=== PATIENT | male | born 1985 ===

== ENCOUNTER 2021-10-10 16:29 | Emergency (ER) | payer SELFPAY ==
[2021-10-10] MEDS ORDERED: Sodium Chloride 0.9% 1,000 ML IV ONE ×2 (16:31→17:22)
[2021-10-10] MEDS ORDERED: Activated Charcoal/Water Susp 50 GM/240 ML Tube PO ONE (16:31)
[2021-10-10] MEDS ORDERED: Naloxone 2 MG/2 ML Syringe IVPUSH ONE (16:31)
[2021-10-10] MEDS ORDERED: Sodium Chloride 0.9% 10 ML Syringe FLUSH PRN (16:34)
[2021-10-10 17:10] LABS: AMPHETAMINES,URINE POSITIVE (NEGATIVE); BARBITURATES,URINE NEGATIVE (NEGATIVE); BENZODIAZEPINE,URINE NEGATIVE (NEGATIVE); MDMA (ECSTASY), URINE NEGATIVE (NEGATIVE); METHADONE,URINE NEGATIVE (NEGATIVE); METHAMPHETAMINES,URINE POSITIVE (NEGATIVE); OPIATES,URINE NEGATIVE (NEGATIVE); OXYCODONE,URINE NEGATIVE (NEGATIVE); PHENCYCLIDINE,URINE NEGATIVE (NEGATIVE); TCA,URINE NEGATIVE (NEGATIVE)
[2021-10-10 17:13] LABS: PTT,PARTIAL THROMBOPLSTIN TIME 24.5 SEC (22.0-34.0)
[2021-10-10] MEDS ORDERED: Ondansetron 4 MG/2 ML SDV IV ONE (17:14)
[2021-10-10 17:21] LABS: ANION GAP 12.6 mEq/L (7-13); CHLORIDE,CL 104 mmol/L (98-107); SODIUM,NA 142 mmol/L (136-145)
[2021-10-10 17:23] LABS: ACETAMINOPHEN 0 ug/mL (10-30 (Therapeutic))
== END 2021-10-10 18:01 ==
LOC: DL.ED 16:29
DX: F32.A Depression, unspecified (principal); T50.902A Poisoning by unspecified drugs, medicaments and biological substances, intentional self-harm, initial encounter; F15.10 Other stimulant abuse, uncomplicated; R94.6 Abnormal results of thyroid function studies
CPT/HCPCS: 36415; 80053; 80143; 80179; 80305; 80307; 81001; 83735; 84436; 84443; 84481; 85025; 85610; 85730; 93005; 96374; 96375; 99283; J2310; J2405; J3490; J7030; 93010